=== PATIENT | female | born 1995 | race Caucasian/White ===

== ENCOUNTER 2022-02-22 17:34 | Emergency (ER) | payer MEDICAID ==
[~2022-02-22] VITALS: Ht 175.3 cm; Wt 111.1 kg
[~2022-02-22 17:34] MED LIST: CEPH500 PO
== END 2022-02-22 23:06 | disposition home or self-care (01) ==
LOC: ER 17:34
DX: O90.0 Disruption of cesarean delivery wound (principal)
CPT/HCPCS: 99282

== ENCOUNTER → 2022-02-26 | Outpatient (CLI) | payer SELFPAY | END | disposition home or self-care (01) | LOC: LAB SHORT 13:33 → LAB 13:33 | DX: T81.89XA Other complications of procedures, not elsewhere classified, initial encounter (principal) ==